=== PATIENT | male | born 1990 | race Caucasian/White ===

== ENCOUNTER 2024-07-16 23:34 | Emergency (ER) | payer OTHER ==
[2024-07-16] MEDS ORDERED: LORazepam 2 MG/ML VIAL ONE (23:57)
[2024-07-17] MEDS ORDERED: METOPROLOL TARTRATE 5 MG/5 ML INJ IV ONE (00:34)
[2024-07-17 01:19] LABS: PT Prothrombin Time 10.5 SECONDS (10-13.0); Protime INR 0.92
[2024-07-17 01:21] LABS: Absolute Basophils 0.1 K/uL (0-0.5); Absolute Eosinophils 0.2 K/uL (0-0.5); Absolute Lymphocytes (CBC) 1.6 K/uL (0.7-4.9); Absolute Neutrophil 6.7 K/uL (1.8-8.0); Basophils % 0.7 % (0-1.3); Eosinophils % 2.5 % (0-4.4); Hematocrit 43.5 % (39.6-49.0); Hemoglobin 15.3 g/dL (13.6-17.9); Lymphocytes % 16.9 % (15.3-44.8); MCH 32.2 pg (27.0-35.0); MCHC 35.1 g/dL (32.0-36.0); MCV 91.6 fL (80-100); MPV 7.6 fL (7.6-11.3); Monocytes % 10.1 % (3.3-12.3); Neutrophils % 69.8 % (41.7-73.7); Platelets 197 thou/uL (152-406); RBC Red Blood Cell Count 4.75 M/uL (4.33-5.43); Red Cell Distribution Width 15.4 % (12.1-15.2)
[2024-07-17 01:32] LABS: ALT/SGPT 33 U/L (16-61); AST/SGOT 21 U/L (15-37); Albumin 3.4 g/dL (3.4-5.0); Albumin/Globulin Ratio 1.1 (1.1-1.8); Alkaline Phosphatase 86 U/L (45-117); Anion Gap 9.9 mEq/L (5.0-15.0); BUN Blood Urea Nitrogen 10 mg/dL (7-18); Bicarbonate 26 mEq/L (21-32); Bilirubin Total 0.4 mg/dL (0.2-1.0); Globulin 3.2 g/dL (2.3-3.5); Glomerular Filtration Rate 86 ml/min (=/>90); Glucose Level 115 mg/dL (74-106); Magnesium 2.1 mg/dL (1.6-2.4); NT PRO-BNP 78 pg/mL (<125); Potassium 3.9 mEq/L (3.5-5.1); Protein, Total 6.6 g/dL (6.4-8.2); Sodium Level 137 mEq/L (136-145)
[2024-07-17 01:42] LABS: Bilirubin Direct < 0.2 mg/dL (0-0.2); Bilirubin Indirect, Calculated 0.2 mg/dL (0.2-0.8); Troponin High Sensitivity 289.7 pg/mL (<58.9)
--- NOTE | 2024-07-17 01:55 | ER ---
Nurse's Notes [facility] Name: Rod Cartwright Age: 33 yrs Sex: Male : 1990 Arrival Date: 07/16/2024 Time: 23:34 Bed 4 Private MD: Diagnosis: Ventricular tachycardia, defibrillator discharge, nonischemic cardiomyopathy, systolic congestive heart failure,. NSTEMI Presentation: 07/16 23:51 Chief complaint: Patient states: my defibrillator went off 3 times. Coronavirus screen: vc1 Client denies travel out of the [place] in the last 14 days. At this time, the client does not indicate any symptoms associated with coronavirus-19. Ebola Screen: Patient negative for fever greater than or equal to 101.5 degrees Fahrenheit, and additional compatible Ebola Virus Disease symptoms Patient denies exposure to infectious person. Patient denies travel to an Ebola-affected area in the 21 days before illness onset. No symptoms or risks identified at this time. Initial Sepsis Screen: Does the patient meet any 2 criteria? No. Patient's initial sepsis screen is negative. Does the patient have a suspected source of infection? No. Patient's initial sepsis screen is negative. Risk Assessment: Do you want to hurt yourself or someone else? Patient reports no desire to harm self or others. Onset of symptoms was July 16, 2024 at 22:45. 23:51 Method Of Arrival: Ambulatory vc1 23:51 Acuity: MARIE 2 vc1 Triage Assessment: 23:55 General: Appears in no apparent distress. uncomfortable, slender, Behavior is vc1 cooperative, anxious. Pain: Complains of pain in anterior aspect of left shoulder Pain does not radiate. Quality of pain is described as sharp. EENT: No deficits noted. No signs and/or symptoms were reported regarding the EENT system. Neuro: Level of Consciousness is awake, alert, obeys commands, Oriented to person, place, time, situation, Appropriate for age. Cardiovascular: Heart tones S1 S2 present Capillary refill < 3 seconds Patient's skin is warm and dry. Respiratory: Reports shortness of breath Airway is patent Respiratory effort is even, unlabored, Respiratory pattern is regular, symmetrical, Breath sounds are clear bilaterally. the patient has mild shortness of breath. GI: No deficits noted. No signs and/or symptoms were reported involving the gastrointestinal system. : No deficits noted. No signs and/or symptoms were reported regarding the genitourinary system. Derm: Skin is intact, is healthy with good turgor, Skin is dry, Skin is normal, Skin temperature is warm. Musculoskeletal: Circulation, motion, and sensation intact. Range of motion: intact in all extremities. Historical: - Allergies: 23:53 No Known Allergies; vc1 - PMHx: 23:53 Depressive disorder; ADHD; Cardiac arrest (2022); vc1 - PSHx: 23:53 pacer/defib; vc1 - Immunization history:: Client reports receiving the 2nd dose of the Covid vaccine, Flu vaccine is not up to date. - Infectious Disease History:: Denies. - Social history:: Smoking status: Patient reports use of chewing tobacco. - Family history:: not pertinent. Screenin:54 [facility] ED Fall Risk Assessment (Adult) History of falling in the last 3 months, vc1 including since admission No falls in past 3 months (0 pts) Confusion or Disorientation No (0 pts) Intoxicated or Sedated No (0 pts) Impaired Gait No (0 pts) Mobility Assist Device Used No (0 pt) Altered Elimination No (0 pt) Score/Fall Risk Level 0 - 2 = Low Risk Oriented to surroundings, Maintained a safe environment, Educated pt \T\ family on fall prevention, incl call for assistance when getting out of bed, Hourly rounding (assess needs \T\ fall precautionary measures) done. Abuse screen: Denies threats or abuse. Nutritional screening: No deficits noted. Tuberculosis screening: No symptoms or risk factors identified. Assessment: 07/17 00:11 General: Appears in no apparent distress. comfortable, Behavior is calm, cooperative. al5 Pain: Denies pain. Neuro: Level of Consciousness is awake, alert, obeys commands, Oriented to person, place, time, situation. Cardiovascular: Reports defibrillator shocked 3 times Capillary refill < 3 seconds Patient's skin is warm and dry. Respiratory: Airway is patent Respiratory effort is even, unlabored, Respiratory pattern is regular, symmetrical. GI: No signs and/or symptoms were reported involving the gastrointestinal system. : No signs and/or symptoms were reported regarding the genitourinary system. EENT: No signs and/or symptoms were reported regarding the EENT system. Derm: Skin is intact, is healthy with good turgor, Skin is pink, warm \T\ dry. normal. Musculoskeletal: No signs and/or symptoms reported regarding the musculoskeletal system. 00:49 Reassessment: Patient appears in no apparent distress at this time. Patient and/or bm8 family updated on plan of care and expected duration. Pain level reassessed. Patient is alert, oriented x 3, equal unlabored respirations, skin warm/dry/pink. Patient states feeling better. Patient states symptoms have improved. 02:18 Reassessment: Patient appears in no apparent distress at this time. No changes from bm8 previously documented assessment. Patient and/or family updated on plan of care and expected duration. Pain level reassessed. 03:51 Reassessment: Patient appears in no apparent distress at this time. Patient and/or bm8 family updated on plan of care and expected duration. Pain level reassessed. Patient is alert, oriented x 3, equal unlabored respirations, skin warm/dry/pink. Patient denies pain at this time. Vital Signs: 07/16 23:51 BP 143 / 101; Pulse 109; Resp 20; Temp 97.9; Pulse Ox 99% ; Weight 71.67 kg; Height 5 vc1 ft. 11 in. ; 07/17 00:00 BP 141 / 99; Pulse 106; Resp 18; Pulse Ox 99% ; al5 00:49 BP 130 / 86; Pulse 91; Resp 18; Temp 97.9; Pulse Ox 98% ; Pain 2/10; bm8 01:00 BP 117 / 85; Pulse 88; Resp 19; Pulse Ox 98% ; al5 02:18 BP 118 / 81; Pulse 88; Resp 18; Temp 98; Pulse Ox 98% ; Pain 0/10; bm8 03:51 BP 114 / 87; Pulse 76; Resp 18; Temp 98; Pulse Ox 99% ; Pain 0/10; bm8 07/16 23:51 Body Mass Index 22.04 (71.67 kg, 180.34 cm) vc1 00:49 Pain Scale: Adult bm8 02:18 Pain Scale: Adult bm8 03:51 Pain Scale: Adult bm8 [employer] Coma Score: 00:49 Eye Response: spontaneous(4). Motor Response: obeys commands(6). Verbal Response: bm8 oriented(5). Total: 15. 00:49 Eye Response: spontaneous(4). Motor Response: obeys commands(6). Verbal Response: sp4 oriented(5). Total: 15. 02:18 Eye Response: spontaneous(4). Motor Response: obeys commands(6). Verbal Response: bm8 oriented(5). Total: 15. 03:51 Eye Response: spontaneous(4). Motor Response: obeys commands(6). Verbal Response: bm8 oriented(5). Total: 15. ED Course: 07/16 23:36 Patient arrived in ED. jj6 23:40 Carlo Doran MD is Attending Physician. sp4 23:53 Triage completed. vc1 23:54 Arm band placed on right wrist. vc1 23:55 Claudio Mcfarlane, RN is Primary Nurse. bm8 23:55 Patient has correct armband on for positive identification. Bed in low position. Call vc1 light in reach. Provided Education on: plan of care. monitor tech on. Pulse ox on. NIBP on. 23:55 EKG done, by ED staff, reviewed by Carlo Doran MD. oe 23:59 XRAY Chest (1 view) In Process Unspecified. EDMS 07/17 00:00 Missed attempt(s): 20 gauge in right forearm. Bleeding controlled, band aid applied, al5 catheter tip intact. 00:12 No provider procedures requiring assistance completed. Inserted saline lock: 20 gauge al5 in left forearm, using aseptic technique. ,using aseptic technique. done by yoav dixon. 00:49 Door closed. Noise minimized. Warm blanket given. Verbal reassurance given. Head of bed bm8 elevated. 00:49 Patient maintains SpO2 saturation greater than 95% on room air. bm8 00:51 Lab(s) recollected, by ED staff, sent to lab. bm8 03:51 Patient transferred, IV remains in place. bm8 Administered Medications: 00:07 Drug: Ativan IVP 1 mg IVP once Route: IVP; Site: left forearm; bm8 02:19 Follow up: Response: No adverse reaction bm8 00:49 Drug: Metoprolol IVP 5 mg IVP every 5 minutes; Hold for SBP < 100 or HR < 60. x3 Route: bm8 IVP; Site: left forearm; 02:19 Follow up: Response: No adverse reaction bm8 03:10 Drug: Potassium PO Effervescent Tablet 25 mEq PO once; dissolve in 4 ounces of water or bm8 juice Route: PO; 03:52 Follow up: Response: No adverse reaction bm8 03:10 Drug: amiodarone IVPB 150 mg 100 ml IVPB once over 10 mins; (mix in D5W) Volume: 100 bm8 ml; Route: IVPB; Infused Over: 10 mins; Site: left forearm; 03:52 Follow up: Response: No adverse reaction; IV Status: Completed infusion bm8 03:14 Drug: amiodarone IVPB 900 mg, D5W IV 500 ml IVPB at 1 mg/min continuous; for 6 hrs, bm8 then change to 0.5 mg/min Route: IVPB; Rate: 1 mg/min; Site: left forearm; 03:52 Follow up: Response: No adverse reaction; IV Status: Infusion continued upon transfer bm8 Medication: 07/16 23:55 VIS not applicable for this client. vc1 Outcome: 07/17 01:54 ER care complete, transfer ordered by . sp4 03:51 Transferred by ground EMS to [facility], Transfer form completed. X-rays sent bm8 w/ patient. 03:51 Condition: stable 03:51 Instructed on follow up and referral plans. the need for transfer, Demonstrated understanding of instructions, follow-up care, medications, 04:06 Patient left the ED. rv1 Signatures: Dispatcher [employer] EDMS Duy Bains Jennifer jj6 Amy Garcia RN RN vc1 Soledad Pulliam rv1 Carlo Doran MD MD sp4 Claudio Mcfarlane, RN RN bm8 Amy Chamberlain RN RN al5 Corrections: (The following items were deleted from the chart) 00:50 00:49 Reassessment: Patient appears in no apparent distress at this time. Patient bm8 and/or family updated on plan of care and expected duration. Pain level reassessed. Patient is alert, oriented x 3, equal unlabored respirations, skin warm/dry/pink. Patient states feeling better. Patient states symptoms have improved. bm8 03:22 02:18 BP 118 / 81; Pulse 88bpm; Resp 18bpm; Pulse Ox 98.4%; Temp 98F; Pain 0/10, Adult; bm8 bm8
--- NOTE | 2024-07-17 01:55 | EDPHYS ---
Physician Documentation [facility] Name: Rod Cartwright Age: 33 yrs Sex: Male : 1990 Arrival Date: 07/16/2024 Time: 23:34 Bed 4 Private MD: ED Physician Cralo Doran HPI: 07/16 23:40 This 33 yrs old Male presents to ER via Unassigned with complaints of sp4 DEFIBRILLATOR HAS GONE OFF 3 TIMES. 07/17 00:33 33-year-old male presents with 3 defibrillator discharges today. Patient has history of sp4 non-ischemic cardiomyopathy. Patient has history of ADHD and also history of citalopram 40 mg daily and Adderall for depression and ADHD. Apparently in September 2022 he went into cardiac arrest secondary to medications, severe distress, and also undiagnosed aortic valve stenosis. After cardiac arrest patient developed nonischemic cardiomyopathy and heart failure and he was given AICD by his strategic partnership specialist at [facility].. Patient states that today he sustained 3 shocks by his defibrillator. Patient's list of medications includes 10 mg Jardiance daily, bupropion XL 300 mg daily spironolactone 12-1/2 mg daily, metoprolol 50 mg daily , losartan 25 mg daily, Eliquis 5 mg twice a day, aspirin 81 mg daily, trazodone 50 mg nightly. 00:45 Additional further history includes open heart surgery and aortic valve replacement. sp4 AICD implantation. Technical Operations Vice President is Dr. Isma Tom. Historical: - Allergies: 07/16 23:53 No Known Allergies; vc1 - PMHx: 23:53 Depressive disorder; ADHD; Cardiac arrest (2022); vc1 - PSHx: 23:53 pacer/defib; vc1 - Immunization history:: Client reports receiving the 2nd dose of the Covid vaccine, Flu vaccine is not up to date. - Infectious Disease History:: Denies. - Social history:: Smoking status: Patient reports use of chewing tobacco. - Family history:: not pertinent. ROS: 07/17 00:48 Constitutional: Negative for fever, chills, and weight loss, positive for sp4 defibrillator discharge All other systems are negative, Exam: 00:49 Constitutional: This is a well developed, well nourished patient who is awake, alert, sp4 and in no acute distress. Head/Face: Normocephalic, atraumatic. Eyes: Pupils equal round and reactive to light, extra-ocular motions intact. Lids and lashes normal. Conjunctiva and sclera are not injected. Cornea within normal limits. Periorbital areas with no swelling, redness, or edema. ENT: Nares patent. No nasal discharge, no septal abnormalities noted. Tympanic membranes are normal and external auditory canals are clear. Oropharynx with no redness, swelling, or masses, exudates, or evidence of obstruction, uvula midline. Mucous membranes moist. Neck: Trachea midline, no thyromegaly or masses palpated, and no cervical lymphadenopathy. Supple, full range of motion without nuchal rigidity, or vertebral point tenderness. Chest/axilla: Normal chest wall appearance and motion. Nontender with no deformity. No lesions are appreciated. Cardiovascular: Regular rate and rhythm with a normal S1 and S2. No gallops, murmurs, or rubs. Normal PMI, no JVD. No pulse deficits. Respiratory: Lungs have equal breath sounds bilaterally, clear to auscultation and percussion. No rales, rhonchi or wheezes noted. No increased work of breathing, no retractions or nasal flaring. Abdomen/GI: Soft, with normal bowel sounds. No distension or tympany. No guarding or rebound. No evidence of tenderness throughout. Back: No spinal tenderness. No costovertebral tenderness. Skin: Warm, dry with normal turgor. Normal color with no rashes, no lesions, and no evidence of cellulitis. MS/ Extremity: Pulses equal, no cyanosis. Neurovascular intact. Full, normal range of motion. Neuro: Awake and alert, GCS 15, oriented to person, place, time, and situation. Cranial nerves II-XII grossly intact. Motor strength 5/5 in all extremities. Sensory grossly intact. Psych: Awake, alert, with orientation to person, place and time. Behavior, mood, and affect are within normal limits 00:50 ECG was reviewed by the Attending Physician. EKG at 2348 atrial sensed ventricular sp4 paced rhythm rate 100 otherwise unremarkable. Vital Signs: 07/16 23:51 BP 143 / 101; Pulse 109; Resp 20; Temp 97.9; Pulse Ox 99% ; Weight 71.67 kg; Height 5 vc1 ft. 11 in. ; 07/17 00:00 BP 141 / 99; Pulse 106; Resp 18; Pulse Ox 99% ; al5 00:49 BP 130 / 86; Pulse 91; Resp 18; Temp 97.9; Pulse Ox 98% ; Pain 2/10; bm8 01:00 BP 117 / 85; Pulse 88; Resp 19; Pulse Ox 98% ; al5 02:18 BP 118 / 81; Pulse 88; Resp 18; Temp 98; Pulse Ox 98% ; Pain 0/10; bm8 03:51 BP 114 / 87; Pulse 76; Resp 18; Temp 98; Pulse Ox 99% ; Pain 0/10; bm8 07/16 23:51 Body Mass Index 22.04 (71.67 kg, 180.34 cm) vc1 00:49 Pain Scale: Adult bm8 02:18 Pain Scale: Adult bm8 03:51 Pain Scale: Adult bm8 Rae Coma Score: 00:49 Eye Response: spontaneous(4). Motor Response: obeys commands(6). Verbal Response: bm8 oriented(5). Total: 15. 00:49 Eye Response: spontaneous(4). Motor Response: obeys commands(6). Verbal Response: sp4 oriented(5). Total: 15. 02:18 Eye Response: spontaneous(4). Motor Response: obeys commands(6). Verbal Response: bm8 oriented(5). Total: 15. 03:51 Eye Response: spontaneous(4). Motor Response: obeys commands(6). Verbal Response: bm8 oriented(5). Total: 15. MDM: 07/16 23:41 Medical Screening Exam initiated sp4 07/17 01:54 Differential diagnosis: acute myocardial infarction, acute pericarditis, anxiety, sp4 coronary artery disease chest wall pain. HEART Score: History: Moderately Suspicious (1), ECG: Non specific repolarization disturbance / LBTB / PM (1), Age: < or = 45 years (0), Risk Factors: > or = 3 Risk factors for atherosclerotic disease (2), Troponin: > or = 3 x Normal Limit (2), Total Score = 6. Data reviewed: vital signs, nurses notes, lab test result(s), EKG, radiologic studies. ED course: Patient stable for transfer to [facility] as advised by Dr. Caleb Tom . 02:52 ED course: Accepting strategic partnership specialist at [facility] has requested amiodarone bolus sp4 and drip also include requested potassium get the potassium up to 4.0.. 07/16 23:38 Order name: Basic Metabolic Panel; Complete Time: 01:52 4 07/16 23:38 Order name: CBC with Diff; Complete Time: 01:52 4 07/16 23:38 Order name: LFT's; Complete Time: : 4 07/16 23:38 Order name: Magnesium; Complete Time: :52 sb4 07/16 23:38 Order name: NT PRO-BNP; Complete Time: :52 4 07/16 23:38 Order name: PT-INR; Complete Time: : 4 07/16 23:38 Order name: Troponin HS; Complete Time: : 4 07/16 23:41 Order name: Lactate w/ 2H reflex if indic.; Complete Time: : [facility] 07/16 23:50 Order name: Urine Drug Screen [facility] 07/17 01:45 Order name: Ghost Lactate-NO COLLECT Timer [facility] 07/17 02:27 Order name: Troponin High Sensitivity [facility] 07/16 23:38 Order name: XRAY Chest (1 view) [facility] 07/16 23:38 Order name: Cardiac monitoring; Complete Time: 23:56 4 07/16 23:38 Order name: EKG - Nurse/Tech; Complete Time: 23:55 [facility] 07/16 23:38 Order name: IV Saline Lock; Complete Time: 23:56 [facility] 07/16 23:38 Order name: Labs collected and sent; Complete Time: 23:56 4 07/16 23:38 Order name: O2 Per Protocol; Complete Time: 23:56 4 07/16 23:38 Order name: O2 Sat Monitoring; Complete Time: 23:56 [facility] 07/17 00:17 Order name: Misc. Order: RECOLLECT ALL LABS; Complete Time: 00:49 rv1 07/17 00:41 Order name: Misc. Order: recollect all labs again.. .hemolyzed again...; Complete Time: sb4 00:49 EC/28 23:48 Rate is 100 beats/min. Rhythm is regular, Paced. Clinical impression: No evidence of sp4 ischemia. Interpreted by me. Reviewed by me. Administered Medications: 07/17 00:07 Drug: Ativan IVP 1 mg IVP once Route: IVP; Site: left forearm; bm8 02:19 Follow up: Response: No adverse reaction bm8 00:49 Drug: Metoprolol IVP 5 mg IVP every 5 minutes; Hold for SBP < 100 or HR < 60. x3 Route: bm8 IVP; Site: left forearm; 02:19 Follow up: Response: No adverse reaction bm8 03:10 Drug: Potassium PO Effervescent Tablet 25 mEq PO once; dissolve in 4 ounces of water or bm8 juice Route: PO; 03:52 Follow up: Response: No adverse reaction bm8 03:10 Drug: amiodarone IVPB 150 mg 100 ml IVPB once over 10 mins; (mix in D5W) Volume: 100 bm8 ml; Route: IVPB; Infused Over: 10 mins; Site: left forearm; 03:52 Follow up: Response: No adverse reaction; IV Status: Completed infusion bm8 03:14 Drug: amiodarone IVPB 900 mg, D5W IV 500 ml IVPB at 1 mg/min continuous; for 6 hrs, bm8 then change to 0.5 mg/min Route: IVPB; Rate: 1 mg/min; Site: left forearm; 03:52 Follow up: Response: No adverse reaction; IV Status: Infusion continued upon transfer bm8 Disposition: :59 Critical Care:. sp4 Disposition Summary: 07/17/24 01:54 Transfer Ordered Notes: Transfer Location: [facility] sp4 Reason: Higher level of care sp4 Condition: Stable sp4 Problem: new sp4 Symptoms: have improved sp4 Accepting Physician: Accepting MD at [facility].(07/17/24 04:06) rv1 Diagnosis - Ventricular tachycardia, defibrillator discharge, nonischemic cardiomyopathy, sp4 systolic congestive heart failure,. NSTEMI Forms: - Medication Reconciliation Form sp4 - SBAR form sp4 Critical care time excluding procedures: :59 Critical care time: Bedside Care: 36 minutes, Consultation: 12 minutes, Family sp4 Intervention: 12 minutes. Total time: 60 minutes Signatures: Dispatcher [employer] Amy Kyle RN RN vc1 Allyssa Jose PAMalachiC PA-C sb4 Soledad Pulliam rv1 Carlo Doran MD MD sp4 Claudio Mcfarlane RN RN bm8 Corrections: (The following items were deleted from the chart) 07/16 23:50 23:50 URINE DRUG SCREEN+UC.LAB.BRZ ordered. EDMS EDMS 07/17 02:27 02:27 Troponin High Sensitivity+C.LAB.BRZ ordered. EDMS EDMS 04: 01:54 Accepting MD at [facility]. sp4 rv1
[2024-07-17] MEDS ORDERED: AMIODARONE HCL 150 MG/3 ML INJ IV ONE (02:51)
[2024-07-17] MEDS ORDERED: D5W 100 ML IV ONE (02:51)
[2024-07-17] MEDS ORDERED: POTASSIUM 25 MEQ EFFERV TAB ONE (02:51)
[2024-07-17] MEDS ORDERED: AMIODARONE IN DEXTROSE,ISO-OSM 360 MG/200 ML BAG IV ONE (02:57)
[2024-07-17 03:29] LABS: Barbiturates NEGATIVE (NEGATIVE); Benzodiazepines NEGATIVE (NEGATIVE); Cocaine NEGATIVE (NEGATIVE); METHAMPHETAM NEGATIVE (NEGATIVE); Methadone NEGATIVE (NEGATIVE); Opiates NEGATIVE (NEGATIVE); Phencyclidine NEGATIVE (NEGATIVE); THC Cannibis NEGATIVE (NEGATIVE)
--- NOTE | 2024-07-17 05:29 | RAD REPORT ---
EXAM: ONE VIEW CHEST X-RAY INDICATION: CHEST PAIN. 33-year-old male. COMPARISON: Chest x-ray report 01/03/2023, images are currently unavailable. FINDINGS: A single AP portable upright view of the chest was obtained. The most superior aspect of the lung apices extends off the superior aspect of the image. No consolidation, pulmonary venous hypertension, pneumothorax, or significant pleural effusion. Cardiac silhouette is normal in size. Left subclavian tripolar pacemaker/AICD, with leads overlying the right atrium, right ventricle, and coronary sinus. Status post median sternotomy and aortic valvular replacement. Mild elevation right hemidiaphragmatic silhouette. No acute osseous abnormality. IMPRESSION: 1. No acute cardiopulmonary process. Electronically signed by: Edmond Bonner MD 07/17/2024 12:38 AM CDT Due to temporary technical issues with the PACS/[employer] reporting system, reports are being telma d by the in-house radiologist without review as a courtesy to ensure prompt reporting the interpreting radiologist is fully responsible for the content of the report. Transcribed Date/Time: 07/17/2024 5:28 AM
--- NOTE | 2024-07-17 11:45 | EKG ---
Test Date: 2024-07-16 Test Time: 23:48:21 Adjuster Leader: BONG MEASUREMENT RESULTS: Intervals: Rate: 100 AK: 130 QRSD: 148 QT: 400 QTc: 516 [place]: P: 25 AK: 130 QRS: 264 T: 69 INTERPRETIVE STATEMENTS: Atrial-sensed ventricular-paced rhythm Abnormal ECG No previous ECG available for comparison Electronically Signed On 07-17-24 11:44:58 CDT by Rommel Hawkins
[2024-07-18 01:04] VITALS: TEMP 98
[2024-07-18 01:06] VITALS: BP 114/87; O2SAT 99
== END 2024-07-17 04:06 | disposition short-term general hospital (02) ==
LOC: ER 23:34
DX: I21.4 Non-ST elevation (NSTEMI) myocardial infarction (principal); T82.897A Other specified complication of cardiac prosthetic devices, implants and grafts, initial encounter; I42.8 Other cardiomyopathies; I50.20 Unspecified systolic (congestive) heart failure; F17.220 Nicotine dependence, chewing tobacco, uncomplicated; Z95.810 Presence of automatic (implantable) cardiac defibrillator; Z95.2 Presence of prosthetic heart valve
CPT/HCPCS: 93005; 85025; 80048; 36415; 83735; 85610; 80076; 83605; 84484 ×2; 83880; 80307; 71045; J0282 ×2